=== PATIENT | female | born 1980 | race Caucasian/White ===

== ENCOUNTER → 2016-07-07 | Outpatient (REF) | payer OTHER | END | disposition home or self-care (01) | LOC: M LAB REF 12:10 | PROVIDERS: ATTEND Physician Assistant Medical | DX: B34.9 Viral infection, unspecified (principal) ==

== ENCOUNTER → 2017-02-17 | Outpatient (REF) | payer OTHER | LOC: M SFHCLERA 18:41 | PROVIDERS: ATTEND Physician Assistant | DX: J02.9 Acute pharyngitis, unspecified (principal) ==

== ENCOUNTER → 2017-04-12 | Outpatient (REF) | payer OTHER | LOC: M SFHCLERA 09:48 | PROVIDERS: ATTEND Physician Assistant | DX: J02.9 Acute pharyngitis, unspecified (principal) ==

== ENCOUNTER → 2017-09-28 | Outpatient (REF) | payer OTHER | LOC: M SFHCLERA 17:42 | DX: R50.9 Fever, unspecified (principal) ==

== ENCOUNTER → 2018-02-09 | Outpatient (REF) | payer OTHER ==
[2018-02-09 22:12] LABS: APPEARANCE, URINE MANUAL TURBID (CLEAR); BILIRUBIN, URINE MANUAL NEGATIVE (NEGATIVE); COLOR, URINE MANUAL RED (YELLOW); GLUCOSE, URINE (UA) MANUAL NEGATIVE (NEGATIVE); KETONE, URINE MANUAL NEGATIVE (NEGATIVE); PROTEIN, URINE MANUAL 3+ mg/dL (NEGATIVE); UROBILINOGEN, URINE MANUAL NORMAL (NORMAL)
[2018-02-09 22:13] LABS: BLOOD URINE MANUAL POSITIVE (NEGATIVE); LEUKOCYTE ESTERASE, URINE MAN POSITIVE (NEGATIVE); MICROSCOPIC INDICATED? MAN YES (NO); NITRITE, URINE MANUAL NEGATIVE (NEGATIVE)
[2018-02-09 22:14] LABS: BACTERIA, URINE MOD AMOUNT; HYALINE CAST, URINE NONE SEEN /lpf (0-1); RBC, URINE TNTC /hpf (0-3); SQUAMOUS EPITHELIAL CELL URINE SMALL AMOUNT /hpf (SMALL AMT); WBC, URINE 20-30 /hpf (0-3)
[2018-02-09 22:15] LABS: MICROSCOPIC EXAM PERFORMED
== END ==
LOC: M LAB REF 21:38
DX: N39.0 Urinary tract infection, site not specified (principal)
CPT/HCPCS: 81015

== ENCOUNTER → 2018-06-24 | Outpatient (REF) | payer OTHER ==
[2018-06-24 22:26] LABS: CHLAMYDIA DNA AMPLIFICATION NEGATIVE (NEGATIVE); GC DNA AMPLIFICATION NEGATIVE (NEGATIVE)
== END ==
LOC: M SFHCLERA 09:27
PROVIDERS: ATTEND Nurse Practitioner Family
DX: R30.0 Dysuria (principal)